=== PATIENT | female | born 2000 | race African-American/Black ===

== ENCOUNTER 2020-01-24 07:48 | Emergency (ER) | payer OTHER ==
[~2020-01-24] VITALS: Ht 162.6 cm; Wt 81.6 kg
== END 2020-01-24 11:54 | disposition home or self-care (01) ==
LOC: ER 07:48
DX: N39.0 Urinary tract infection, site not specified (principal); B33.8 Other specified viral diseases; B96.0 Mycoplasma pneumoniae [M. pneumoniae] as the cause of diseases classified elsewhere; Z20.828 Contact with and (suspected) exposure to other viral communicable diseases

== ENCOUNTER 2020-09-10 14:14 | Outpatient (CLI) | payer OTHER | END 2020-09-10 18:00 | disposition home or self-care (01) | LOC: PPH VACUNA 14:14 | DX: Z23 Encounter for immunization (principal) ==

== ENCOUNTER 2022-07-29 09:53 | Outpatient (CLI) | payer OTHER | END 2022-07-29 10:02 | disposition home or self-care (01) | LOC: RAD 09:53 | PROVIDERS: ATTEND General Practice | DX: I11.9 Hypertensive heart disease without heart failure (principal) ==